=== PATIENT | male | born 1955 | race Caucasian/White ===

== ENCOUNTER 2018-02-26 09:25 | Outpatient (CLI) | payer OTHER ==
[2018-02-26 10:29] LABS: HEMATOCRIT 37.2 % (36-52); MEAN CORPUSCULAR HEMOGLOBIN 30 pg (27-31); MEAN CORPUSCULAR VOLUME 91.7 fL (80-94); RED BLOOD CELL COUNT(AUTO) 4.05 MIL/uL (4.20-6.10); WHITE BLOOD COUNT (AUTO) 8.2 K/uL (4.8-10.8)
[2018-02-26 10:30] LABS: BASOPHILS % (AUTO) 2.4 % (0.0-2.0); EOSINOPHILS % (AUTO) 3.1 % (0.0-4.0); LYMPHOCYTES % (AUTO) 18.4 % (20.5-51.1); MEAN CORPUSCULAR HGB CONC 32 g/dL (33-37); MONOCYTES % (AUTO) 9.8 % (1.7-9.3); NEUTROPHILS % (AUTO) 66.3 % (42.2-75.2); PLATELET COUNT (AUTO) 213 K/uL (140-450); RED CELL DISTRIBUTION WIDTH 12.8 % (11.6-13.7)
[2018-02-26 11:15] LABS: ALBUMIN 3.7 g/dL (3.4-5.0); ANION GAP 15.2 (8-16); APPEARANCE,URINE CLEAR (CLEAR); BILIRUBIN,URINE NEGATIVE (NEGATIVE); BLOOD, URINE NEGATIVE (NEGATIVE); CARBON DIOXIDE 23.6 mmol/L (21-32); COLOR,URINE YELLOW (YELLOW); CREATININE 1.6 mg/dL (0.7-1.3); FREE T4 (FREE THYROXINE) 1.04 ng/dL (0.76-1.46); LEUKOCYTE ESTERASE ,URINE NEGATIVE (NEGATIVE); NITRITE, URINE NEGATIVE (NEGATIVE); PH,URINE 6.5 (5.0-9.0); POTASSIUM 4.8 mmol/L (3.5-5.1); THYROID STIMULATING HORMONE 0.97 uIU/mL (0.34-3.74); TOTAL BILIRUBIN 0.5 mg/dL (0.0-1.0); UGLUCOSE NEGATIVE (NEGATIVE)
[2018-02-26 12:42] LABS: CHOL/HDL RATIO 1.8 (1-4.5)
[2018-02-27 09:43] LABS: TRIIODOTHYRONINE FREE 3.1 pg/mL (2.0-4.4)
[2018-02-27 10:18] LABS: HEPATITIS B SURFACE ANTIGEN Negative (Negative)
[2018-02-28 09:07] LABS: ANTI-NUCLEAR ANTIBODY,DIRECT Negative (Negative)
== END 2018-02-26 19:28 | disposition home or self-care (01) ==
LOC: MLB 09:25
PROVIDERS: ATTEND Internal Medicine Nephrology
DX: I12.9 Hypertensive chronic kidney disease with stage 1 through stage 4 chronic kidney disease, or unspecified chronic kidney disease (principal); E11.22 Type 2 diabetes mellitus with diabetic chronic kidney disease; N18.3 Chronic kidney disease, stage 3 (moderate); E78.2 Mixed hyperlipidemia; E66.09 Other obesity due to excess calories
CPT/HCPCS: 36415; 76770; 80053; 81003; 82306; 82550; 82595; 82607; 83036; 84165; 84436; 84439; 84443; 84481; 84550; 85025; 86038; 86803; 87340; Q0092